=== PATIENT | male | born 1970 | race African-American/Black ===

== ENCOUNTER 2020-06-18 10:35 | Emergency (ER) | payer BC, SELFPAY ==
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
[2020-06-18] MEDS ORDERED: AMOX/K CLAV 875 MG TAB ONE (11:50)
[2020-06-18] MEDS ORDERED: IBUPROFEN 200 MG TAB PO ONE (11:50)
[2020-06-18 11:59] VITALS: BP 131/94; O2SAT 100
== END 2020-06-18 11:51 | disposition home or self-care (01) ==
LOC: ER 10:35
DX: L25.3 Unspecified contact dermatitis due to other chemical products (principal); H60.91 Unspecified otitis externa, right ear; H66.91 Otitis media, unspecified, right ear; T52.0X1A Toxic effect of petroleum products, accidental (unintentional), initial encounter; I10 Essential (primary) hypertension
CPT/HCPCS: 99284